=== PATIENT | female | born 2000 | race African-American/Black ===

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

== ENCOUNTER 2022-04-06 13:20 | Emergency (ER) | payer MEDICAID, OTHER ==
[~2022-04-06] VITALS: Ht 165.1 cm; Wt 127.0 kg
[2022-04-06 13:36] VITALS: BP 113/78
== END 2022-04-06 14:46 | disposition home or self-care (01) ==
LOC: ER 14:36
DX: L91.0 Hypertrophic scar (principal); J45.909 Unspecified asthma, uncomplicated; F12.10 Cannabis abuse, uncomplicated
CPT/HCPCS: 99281

== ENCOUNTER 2023-04-17 15:39 | Emergency (ER) | payer OTHER ==
[~2023-04-17] VITALS: Ht 170.2 cm; Wt 90.0 kg
[2023-04-17 15:43] VITALS: O2SAT 100
[2023-04-17] MEDS ORDERED: ACETAMINOPHEN 500MG TABLET PO ONE (16:00)
[2023-04-17] MEDS ORDERED: IBUP-2029 MT (18:09)
[2023-04-17 19:00] VITALS: BP 124/71; PULSE 85; RESP 18; TEMP 98.5
== END 2023-04-17 19:01 | disposition home or self-care (01) ==
LOC: ER 15:39
DX: S09.90XA Unspecified injury of head, initial encounter (principal); S00.83XA Contusion of other part of head, initial encounter; F12.10 Cannabis abuse, uncomplicated; J45.909 Unspecified asthma, uncomplicated; Y04.0XXA Assault by unarmed brawl or fight, initial encounter; Y93.89 Activity, other specified; Y92.89 Other specified places as the place of occurrence of the external cause; Y99.8 Other external cause status
CPT/HCPCS: 70486; 99284

== ENCOUNTER 2023-07-20 17:32 | Emergency (ER) | payer OTHER ==
[~2023-07-20] VITALS: Ht 177.8 cm; Wt 140.0 kg
[~2023-07-20 17:32] MED LIST: IBUP-2029 MT
[2023-07-20 17:48] VITALS: O2SAT 98
[2023-07-20 20:20] VITALS: BP 124/80; PULSE 82; RESP 20; TEMP 98.3
== END 2023-07-20 20:23 ==
LOC: ER 17:32
DX: Z00.00 Encounter for general adult medical examination without abnormal findings (principal); M54.50 Low back pain, unspecified; F12.10 Cannabis abuse, uncomplicated; J45.909 Unspecified asthma, uncomplicated
CPT/HCPCS: 99283